=== PATIENT | male | born 1980 | race Caucasian/White ===

== ENCOUNTER 2022-09-12 11:15 | Emergency (ER) | payer BC, OTHER ==
[~2022-09-12] VITALS: Ht 172.7 cm; Wt 100.0 kg
[2022-09-12 11:21] VITALS: BP 143/98
[2022-09-12] MEDS ORDERED: CARB100T4 PO (12:04)
== END 2022-09-12 12:26 | disposition home or self-care (01) ==
LOC: ER 11:15
DX: Z76.0 Encounter for issue of repeat prescription (principal); G40.909 Epilepsy, unspecified, not intractable, without status epilepticus; R03.0 Elevated blood-pressure reading, without diagnosis of hypertension
CPT/HCPCS: 99283